=== PATIENT | female | born 1990 | race African-American/Black ===

== ENCOUNTER 2017-01-13 02:11 | Emergency (ER) | payer MEDICAID ==
[~2017-01-13] VITALS: Ht 167.6 cm; Wt 117.3 kg
[2017-01-13 02:12] VITALS: BP 138/82
== END 2017-01-13 03:42 | disposition home or self-care (01) ==
LOC: ED 03:36
DX: R05 Cough (principal); R09.1 Pleurisy
CPT/HCPCS: 71020; 93005; 99284